=== PATIENT | female | born 1960 | race Caucasian/White ===

== ENCOUNTER 2017-07-19 00:26 | Inpatient (IN) | payer BC ==
[~2017-07-19] VITALS: Ht 162.6 cm; Wt 123.4 kg
[2017-07-19] MEDS ORDERED: IPRATROPIUM BROM3 M1 (00:43)
[2017-07-19] MEDS ORDERED: PROAIR HFA0.09 MG/AC INH (00:43)
[2017-07-19] MEDS ORDERED: COMBIRESP INH (00:44)
[2017-07-19] MEDS ORDERED: ASPIRIN 81M81 MG/TA2 PO (00:45)
[2017-07-19] MEDS ORDERED: LIPITOR 40MG TA40 MG PO (00:45)
[2017-07-19] MEDS ORDERED: KLONOPIN 1MG1 MG PO (00:46)
[2017-07-19] MEDS ORDERED: PLAVIX 75MG TAB75 MG PO (00:46)
[2017-07-19] MEDS ORDERED: FLONASEALLERGY NAS (00:47)
[2017-07-19] MEDS ORDERED: LASIX 40MG TABL40 MG PO ×2 (00:49→00:50)
[2017-07-19] MEDS ORDERED: NEURONTIN600 MG/TAB PO (00:51)
[2017-07-19] MEDS ORDERED: GLUCOSAMINE/CHO1 CA4 PO (00:53)
[2017-07-19] MEDS ORDERED: MUCINEX 60600 MG/TA1 PO (00:54)
[2017-07-19] MEDS ORDERED: NOVOLOG 100U100 U/M1 SQ ×2 (00:55→00:56)
[2017-07-19] MEDS ORDERED: TRESIBA FL200 UNIT/1 SQ (00:56)
[2017-07-19] MEDS ORDERED: COZAAR 25MG25 MG/TAB PO (00:57)
[2017-07-19] MEDS ORDERED: SYNTHROID0.2 MG/TAB (00:57)
[2017-07-19] MEDS ORDERED: ZAROXOLYN 2.52.5 MG (00:59)
[2017-07-19] MEDS ORDERED: TOPROL XL 25MG25 MG PO (01:08)
[2017-07-19] MEDS ORDERED: OMEGA-3 FISH1000 MG PO (01:09)
[2017-07-19] MEDS ORDERED: PROTONIX40 MG/Pack PO (01:09)
[2017-07-19] MEDS ORDERED: K-DUR 10 MEQ T10 MEQ PO (01:12)
[2017-07-19 01:25] LABS: INFLUENZA A NEGATIVE; INFLUENZA B NEGATIVE
[2017-07-19] MEDS ORDERED: K-DUR 10 MEQ T10 MEQ (01:25)
[2017-07-19] MEDS ORDERED: AMBIEN 10MG10 MG PO (01:26)
[2017-07-19] MEDS ORDERED: EFFEXOR-XR150 MG PO (01:26)
[2017-07-19 01:31] LABS: BASO % 0.5 % (0.0-2.0); EOS # 0.2 (0.0-0.7); EOS % 3.8 % (0-4.0); GRAN # 3.9 (1.4-6.5); GRAN % 66.9 % (42.2-75.2); LYMPH # 1.1 (1.2-3.4); MEAN CELL VOLUME 84 fl (80.0-100.0); MEAN CORPUSCULAR HGB CONC 30 g/dl (33.0-37.0); MEAN PLATELET VOLUME 9.6 fl (7.4-10.4); MONO # 0.6 (0.1-0.6); MONO % 10.6 % (1.7-9.3); PLATELET COUNT 228 K/mm3 (130-400); RED BLOOD COUNT 4.16 M/mm3 (4.10-5.30); REDCELL DISTRIBUTION WIDTH-CV 16.9 % (11.5-14.5)
[2017-07-19 01:33] LABS: HEMATOCRIT 34.9 % (37.0-47.0); HEMOGLOBIN 10.6 g/dl (12.5-16.0); MEAN CORPUSCULAR HEMOGLOBIN 25 pg (27.0-31.0)
[2017-07-19 01:40] LABS: ALBUMIN 3.8 gm/dL (3.5-5.0); BILIRUBIN,TOTAL 0.3 mg/dL (0.0-1.0); CALCIUM 9.1 mg/dL (8.4-10.2); CREATININE, serum 0.76 mg/dL (0.52-1.25); POTASSIUM 4.1 mmol/L (3.4-5.0); TOTAL PROTEIN 6.9 gm/dL (6.4-8.2)
[2017-07-19 04:49] VITALS: BP 133/60; PULSE 88; TEMP 98.1
[2017-07-19 04:51] VITALS: BP 133/60; PULSE 87; TEMP 98.3
[2017-07-19 05:04] LABS: BUDDING YEAST Present /hpf; PH 5 (5-8); SQUAMOUS EPITHELIAL 0-2 /hpf; URINE APPEARANCE Clear; URINE BACTERIA None Seen /hpf; URINE BILIRUBIN Negative (NEGATIVE); URINE BLOOD 1+ (NEGATIVE); URINE COLOR Straw; URINE GLUCOSE 3+ (NEGATIVE); URINE KETONE Negative (NEGATIVE); URINE LEUKOCYTE ESTERASE Trace (NEGATIVE); URINE NITRATE Negative (NEGATIVE); URINE PROTEIN(semi-quant) Negative (NEGATIVE); URINE UROBILINOGEN Negative (NEGATIVE)
[2017-07-19 05:14] LABS: COLLECTION METHOD CLEAN CATCH
[2017-07-19 05:37] LABS: MEAN CELL VOLUME 84 fl (80.0-100.0); MEAN CORPUSCULAR HGB CONC 31 g/dl (33.0-37.0); MEAN PLATELET VOLUME 9.8 fl (7.4-10.4); PLATELET COUNT 246 K/mm3 (130-400); RED BLOOD COUNT 4.32 M/mm3 (4.10-5.30)
[2017-07-19 05:39] LABS: HEMATOCRIT 36.4 % (37.0-47.0); HEMOGLOBIN 11.1 g/dl (12.5-16.0); MEAN CORPUSCULAR HEMOGLOBIN 26 pg (27.0-31.0)
[2017-07-19 05:42] LABS: PROTHROMBIN TIME 12.1 SECONDS (9.7-12.8)
[2017-07-19 05:49] LABS: ALBUMIN 4.2 gm/dL (3.5-5.0); BILIRUBIN,TOTAL 0.3 mg/dL (0.0-1.0); CHOLESTEROL RISK RATIO 3.3; CREATININE, serum 0.79 mg/dL (0.52-1.25); MAGNESIUM 1.4 mg/dL (1.6-2.3); TOTAL PROTEIN 7.7 gm/dL (6.4-8.2)
[2017-07-19 05:59] LABS: BAND 4 % (0-10); LYMPHOCYTE 16 % (20.0-51.0); NEUTROPHILS 76 % (42.0-75.2); TROPONIN-I 0.024 ng/mL (0.000-0.034)
[2017-07-19 06:00] LABS: ANISOCYTOSIS 2+; HYPOCHROMIA 2+; POLYCHROMASIA 1+
[2017-07-19 06:18] LABS: THYROID STIMULATING HORMONE 15.5 uIU/mL (0.465-4.680)
[2017-07-19 07:21] VITALS: BP 117/50; PULSE 86; TEMP 97.7
[2017-07-19 12:19] VITALS: BP 134/53; PULSE 84; TEMP 97.6
[2017-07-19 15:43] VITALS: BP 148/63; PULSE 94
[2017-07-19 18:08] LABS: CALCIUM 9.2 mg/dL (8.4-10.2); CREATININE, serum 0.83 mg/dL (0.52-1.25); POTASSIUM 4.7 mmol/L (3.4-5.0)
[2017-07-19 19:07] VITALS: BP 125/60; PULSE 73; TEMP 98.2
[2017-07-20] VITALS (7 sets, daily range): BP systolic 116–145; BP diastolic 43–78; PULSE 55–84; TEMP 97.6–98.6
[2017-07-20 07:27] LABS: BASO % 0.5 % (0.0-2.0); EOS % 0.2 % (0-4.0); GRAN # 4.9 (1.4-6.5); GRAN % 83.2 % (42.2-75.2); HEMATOCRIT 37.3 % (37.0-47.0); LYMPH # 0.6 (1.2-3.4); LYMPH % 10.7 % (20.0-51.0); MEAN CELL VOLUME 86 fl (80.0-100.0); MEAN CORPUSCULAR HEMOGLOBIN 26 pg (27.0-31.0); MEAN CORPUSCULAR HGB CONC 30 g/dl (33.0-37.0); MEAN PLATELET VOLUME 10.4 fl (7.4-10.4); MONO # 0.3 (0.1-0.6); MONO % 4.7 % (1.7-9.3); PLATELET COUNT 280 K/mm3 (130-400); RED BLOOD COUNT 4.36 M/mm3 (4.10-5.30); REDCELL DISTRIBUTION WIDTH-CV 17.2 % (11.5-14.5)
[2017-07-20 07:31] LABS: HEMOGLOBIN 11.2 g/dl (12.5-16.0)
[2017-07-21] VITALS (7 sets, daily range): BP systolic 125–175; BP diastolic 47–62; PULSE 78–108; TEMP 98–98.6
[2017-07-21 06:58] LABS: CALCIUM 9.2 mg/dL (8.4-10.2); CREATININE, serum 0.89 mg/dL (0.52-1.25); POTASSIUM 3.6 mmol/L (3.4-5.0)
[2017-07-22 03:40] VITALS: BP 117/43; PULSE 79; TEMP 98.5
[2017-07-22 07:27] VITALS: BP 137/60; PULSE 83; TEMP 97.8
[2017-07-22 07:58] LABS: BASO # 0.1 (0.0-0.2); BASO % 0.5 % (0.0-2.0); EOS # 0.3 (0.0-0.7); EOS % 2.6 % (0-4.0); GRAN # 9.3 (1.4-6.5); GRAN % 76.6 % (42.2-75.2); LYMPH # 1.6 (1.2-3.4); MEAN CELL VOLUME 86 fl (80.0-100.0); MEAN CORPUSCULAR HGB CONC 30 g/dl (33.0-37.0); MEAN PLATELET VOLUME 9.8 fl (7.4-10.4); MONO # 0.9 (0.1-0.6); MONO % 7.1 % (1.7-9.3); PLATELET COUNT 242 K/mm3 (130-400); RED BLOOD COUNT 4.08 M/mm3 (4.10-5.30); REDCELL DISTRIBUTION WIDTH-CV 17.4 % (11.5-14.5)
[2017-07-22 08:05] LABS: CALCIUM 8.8 mg/dL (8.4-10.2); CREATININE, serum 0.9 mg/dL (0.52-1.25)
[2017-07-22 08:13] LABS: HEMATOCRIT 34.9 % (37.0-47.0); HEMOGLOBIN 10.5 g/dl (12.5-16.0); MEAN CORPUSCULAR HEMOGLOBIN 26 pg (27.0-31.0)
[2017-07-22 11:31] VITALS: BP 120/95; PULSE 89; TEMP 98.4
[2017-07-22 16:09] VITALS: BP 106/50; PULSE 68; TEMP 97.4
[2017-07-22 20:08] VITALS: BP 153/74; PULSE 81; TEMP 98.3
[2017-07-22 23:48] VITALS: BP 153/59; PULSE 84; TEMP 98.2
[2017-07-23 04:10] VITALS: BP 159/51; PULSE 94; TEMP 98.2
[2017-07-23 07:31] LABS: CALCIUM 8.9 mg/dL (8.4-10.2); CREATININE, serum 0.84 mg/dL (0.52-1.25); POTASSIUM 3.9 mmol/L (3.4-5.0)
[2017-07-23 07:35] VITALS: BP 154/52; PULSE 89; TEMP 98
[2017-07-23 10:53] VITALS: BP 118/50; PULSE 74; TEMP 98.9
[2017-07-23 15:49] VITALS: BP 147/63; PULSE 80; TEMP 98.6
[2017-07-23 21:46] VITALS: BP 145/59; PULSE 84; TEMP 98.2
[2017-07-24 00:38] VITALS: BP 156/53; PULSE 84; TEMP 99.6
[2017-07-24 04:49] VITALS: BP 141/54; PULSE 79; TEMP 99.1
[2017-07-24 05:56] LABS: BASO % 0.4 % (0.0-2.0); EOS # 0.6 (0.0-0.7); EOS % 6.5 % (0-4.0); GRAN # 5.3 (1.4-6.5); GRAN % 63.2 % (42.2-75.2); LYMPH # 1.9 (1.2-3.4); MEAN CELL VOLUME 85 fl (80.0-100.0); MEAN CORPUSCULAR HGB CONC 30 g/dl (33.0-37.0); MEAN PLATELET VOLUME 9.4 fl (7.4-10.4); MONO # 0.6 (0.1-0.6); MONO % 7.5 % (1.7-9.3); PLATELET COUNT 248 K/mm3 (130-400); RED BLOOD COUNT 3.99 M/mm3 (4.10-5.30); REDCELL DISTRIBUTION WIDTH-CV 17.2 % (11.5-14.5)
[2017-07-24 06:03] LABS: HEMATOCRIT 33.7 % (37.0-47.0); HEMOGLOBIN 10.1 g/dl (12.5-16.0); MEAN CORPUSCULAR HEMOGLOBIN 25 pg (27.0-31.0)
[2017-07-24 06:07] LABS: CALCIUM 8.5 mg/dL (8.4-10.2); CREATININE, serum 0.73 mg/dL (0.52-1.25); POTASSIUM 4.1 mmol/L (3.4-5.0)
[2017-07-24 07:15] VITALS: BP 136/49; PULSE 77; TEMP 97.8
[2017-07-24 10:58] VITALS: BP 132/53; PULSE 82; TEMP 98.4
[2017-07-24] MEDS ORDERED: NYSTATIN OR100 MU/ML PO (14:42)
== END 2017-07-24 18:27 | disposition home or self-care (01) | DRG 191 ==
LOC: COL.ER 00:26 → MEDICAL 02:27
PROVIDERS: Emergency Medicine; Family Medicine; Internal Medicine; Physician Assistant
DX: J44.1 Chronic obstructive pulmonary disease with (acute) exacerbation (principal); Z68.42 Body mass index [BMI] 45.0-49.9, adult; E66.01 Morbid (severe) obesity due to excess calories; E03.9 Hypothyroidism, unspecified; J06.9 Acute upper respiratory infection, unspecified; I11.0 Hypertensive heart disease with heart failure; I50.9 Heart failure, unspecified; E11.9 Type 2 diabetes mellitus without complications; I73.9 Peripheral vascular disease, unspecified; F41.9 Anxiety disorder, unspecified; R51 Headache; Z95.1 Presence of aortocoronary bypass graft; Z95.5 Presence of coronary angioplasty implant and graft; Z87.891 Personal history of nicotine dependence; Z79.4 Long term (current) use of insulin
CPT/HCPCS: 99223-AI; 99232-AI; 99233-AI; 99239; G0378; J0456; J0696; J1650; J1815; J1940; J2920; J2930; J7030; J7050

== ENCOUNTER → 2018-01-07 | Outpatient (CLI) | payer BC ==
[~2018-01-07] MED LIST: AMBIEN 10MG10 MG PO; ASPIRIN 81M81 MG/TA2 PO; COMBIRESP INH; COZAAR 25MG25 MG/TAB PO; EFFEXOR-XR150 MG PO; FLONASEALLERGY NAS; GLUCOSAMINE/CHO1 CA4 PO; IPRATROPIUM BROM3 M1; K-DUR 10 MEQ T10 MEQ; K-DUR 10 MEQ T10 MEQ PO; KLONOPIN 1MG1 MG PO; LASIX 40MG TABL40 MG PO; LIPITOR 40MG TA40 MG PO; MUCINEX 60600 MG/TA1 PO; NEURONTIN600 MG/TAB PO; NOVOLOG 100U100 U/M1 SQ; NYSTATIN OR100 MU/ML PO; OMEGA-3 FISH1000 MG PO; PLAVIX 75MG TAB75 MG PO; PROAIR HFA0.09 MG/AC INH; PROTONIX40 MG/Pack PO; SYNTHROID0.2 MG/TAB; TOPROL XL 25MG25 MG PO; TRESIBA FL200 UNIT/1 SQ; ZAROXOLYN 2.52.5 MG
[2018-01-07 14:05] LABS: BASO # 0.1 (0.0-0.2); BASO % 0.9 % (0.0-2.0); EOS # 0.3 (0.0-0.7); EOS % 4.9 % (0-4.0); GRAN # 3.4 (1.4-6.5); GRAN % 59.6 % (42.2-75.2); HEMATOCRIT 40.7 % (37.0-47.0); LYMPH # 1.5 (1.2-3.4); LYMPH % 26.9 % (20.0-51.0); MEAN CELL VOLUME 90 fl (80.0-100.0); MEAN CORPUSCULAR HEMOGLOBIN 29 pg (27.0-31.0); MEAN CORPUSCULAR HGB CONC 32 g/dl (33.0-37.0); MEAN PLATELET VOLUME 9.9 fl (7.4-10.4); MONO # 0.4 (0.1-0.6); PLATELET COUNT 264 K/mm3 (130-400); RED BLOOD COUNT 4.52 M/mm3 (4.10-5.30); REDCELL DISTRIBUTION WIDTH-CV 15.4 % (11.5-14.5)
[2018-01-07 14:49] LABS: TSH w REFLEX 11.7 uIU/mL (0.465-4.680)
== END ==
LOC: COL.LAB 12:09
PROVIDERS: Family Medicine
DX: L02.12 Furuncle of neck (principal); E03.9 Hypothyroidism, unspecified; E11.9 Type 2 diabetes mellitus without complications; L03.019 Cellulitis of unspecified finger

== ENCOUNTER → 2018-02-26 | Outpatient (CLI) | payer BC | LOC: COL.LAB 15:57 | DX: E03.9 Hypothyroidism, unspecified (principal) ==

== ENCOUNTER → 2018-06-03 | Outpatient (CLI) | payer BC ==
[2018-06-03 12:08] LABS: CALCIUM 9.6 mg/dL (8.4-10.2); CREATININE, serum 0.67 mg/dL (0.52-1.25); MAGNESIUM 1.6 mg/dL (1.6-2.3); POTASSIUM 4.7 mmol/L (3.4-5.0)
== END ==
LOC: COL.LAB 11:31
PROVIDERS: Internal Medicine Cardiovascular Disease
DX: I10 Essential (primary) hypertension (principal)

== ENCOUNTER → 2018-07-31 | Outpatient (CLI) | payer BC ==
[2018-07-31 16:19] LABS: HEMATOCRIT 44.1 % (37.0-47.0); HEMOGLOBIN 14.9 g/dl (12.5-16.0); MEAN CELL VOLUME 87 fl (80.0-100.0); MEAN CORPUSCULAR HEMOGLOBIN 29 pg (27.0-31.0); MEAN CORPUSCULAR HGB CONC 34 g/dl (33.0-37.0); MEAN PLATELET VOLUME 10.1 fl (7.4-10.4); PLATELET COUNT 233 K/mm3 (130-400); RED BLOOD COUNT 5.07 M/mm3 (4.10-5.30); REDCELL DISTRIBUTION WIDTH-CV 13.9 % (11.5-14.5)
[2018-07-31 16:31] LABS: CALCIUM 9.9 mg/dL (8.4-10.2); CREATININE, serum 0.76 mg/dL (0.52-1.25); POTASSIUM 5.4 mmol/L (3.4-5.0)
== END ==
LOC: COL.LAB 15:37
PROVIDERS: Internal Medicine Cardiovascular Disease
DX: I73.9 Peripheral vascular disease, unspecified (principal)

== ENCOUNTER → 2018-08-07 | Outpatient (CLI) | payer BC ==
[2018-08-07 16:56] LABS: HEMATOCRIT 40.5 % (37.0-47.0); HEMOGLOBIN 13.6 g/dl (12.5-16.0); MEAN CELL VOLUME 88 fl (80.0-100.0); MEAN CORPUSCULAR HEMOGLOBIN 30 pg (27.0-31.0); MEAN CORPUSCULAR HGB CONC 34 g/dl (33.0-37.0); MEAN PLATELET VOLUME 10.4 fl (7.4-10.4); PLATELET COUNT 186 K/mm3 (130-400); RED BLOOD COUNT 4.58 M/mm3 (4.10-5.30); REDCELL DISTRIBUTION WIDTH-CV 13.7 % (11.5-14.5)
[2018-08-07 17:12] LABS: CALCIUM 9.5 mg/dL (8.4-10.2); CREATININE, serum 0.72 mg/dL (0.52-1.25); POTASSIUM 4.8 mmol/L (3.4-5.0)
== END ==
LOC: COL.LAB 16:34
PROVIDERS: Internal Medicine Cardiovascular Disease
DX: I73.9 Peripheral vascular disease, unspecified (principal)

== ENCOUNTER → 2018-10-29 | Outpatient (CLI) | payer BC | LOC: COL.RAD 08:18 | DX: I99.8 Other disorder of circulatory system (principal); I70.203 Unspecified atherosclerosis of native arteries of extremities, bilateral legs; I74.5 Embolism and thrombosis of iliac artery; Z95.820 Peripheral vascular angioplasty status with implants and grafts; I74.3 Embolism and thrombosis of arteries of the lower extremities | CPT/HCPCS: Q9967 ==

== ENCOUNTER 2019-08-21 17:06 | Inpatient (IN) | payer BC ==
[2019-08-21] VITALS (53 sets, daily range): BP systolic 100–109; BP diastolic 62–73; PULSE 72–82; TEMP 97.7; O2SAT 95–100
[~2019-08-21] VITALS: Ht 162.6 cm; Wt 105.2 kg
[~2019-08-21 17:06] MED LIST changes: -SYNTHROID0.2 MG/TAB; +SYNTHROID0.2 MG/TAB PO
[2019-08-21 17:37] LABS: BASO # 0.1 (0.0-0.2); BASO % 0.6 % (0.0-2.0); EOS # 0.1 (0.0-0.7); EOS % 1.1 % (0-4.0); GRAN # 8.7 (1.4-6.5); GRAN % 75.9 % (42.2-75.2); HEMATOCRIT 47.2 % (37.0-47.0); HEMOGLOBIN 15.2 g/dl (12.5-16.0); INR 0.9 (0.8-3.0); LYMPH # 1.7 (1.2-3.4); LYMPH % 14.4 % (20.0-51.0); MEAN CELL VOLUME 89 fl (80.0-100.0); MEAN CORPUSCULAR HEMOGLOBIN 29 pg (27.0-31.0); MEAN CORPUSCULAR HGB CONC 32 g/dl (33.0-37.0); MONO # 0.9 (0.1-0.6); MONO % 7.5 % (1.7-9.3); PLATELET COUNT 280 K/mm3 (130-400); PROTHROMBIN TIME 10.5 SECONDS (9.7-12.8); RED BLOOD COUNT 5.32 M/mm3 (4.10-5.30); REDCELL DISTRIBUTION WIDTH-CV 15.2 % (11.5-14.5)
[2019-08-21 17:39] LABS: PARTIAL THROMBOPLASTIN TIME 43.3 SECONDS (26.0-37.0)
[2019-08-21 17:51] LABS: ALBUMIN 4.5 gm/dL (3.5-5.0); BILIRUBIN,TOTAL 0.7 mg/dL (0.0-1.0); CALCIUM 9.7 mg/dL (8.4-10.2); CREATININE, serum 0.97 (0.52-1.25); POTASSIUM 5.2 mmol/L (3.4-5.0); TOTAL PROTEIN 8.7 gm/dL (6.4-8.2)
[2019-08-21 18:07] LABS: TROPONIN-I 3.59 ng/mL (0.000-0.035)
[2019-08-21 20:36] LABS: ARTERIAL BLD GAS O2 SATURATION 99.1 % (92-100); ARTERIAL BLD GAS TCO2 CT 18.6; ARTERIAL BLOOD GAS BASE EXCESS -5.9 (-2-2); ARTERIAL BLOOD GAS HCO3 17.7 meq/L (22-26); ARTERIAL BLOOD GAS PCO2 29.8 mmHg (35-45); ARTERIAL BLOOD GAS pH 7.39 (7.35-7.45)
[2019-08-21 20:37] LABS: ARTERIAL BLOOD GAS PO2 174.8 mmHg (80-100)
[2019-08-21 21:30] LABS: MAGNESIUM 1.9 mg/dL (1.6-2.3)
[2019-08-21] MEDS ORDERED: INSHUMULINR (21:43)
[2019-08-21 22:02] LABS: TSH w REFLEX 19.9 uIU/mL (0.465-4.680)
[2019-08-21 22:05] LABS: TROPONIN-I 3 HR POST INITIAL 22.1 ng/mL (0.000-0.034)
[2019-08-21] MEDS ORDERED: COZAAR 50MG50 MG/TAB PO (22:09)
[2019-08-21] MEDS ORDERED: SYNTHROID0.075 MG/T PO (22:12)
[2019-08-21] MEDS ORDERED: ALDACTONE 25MG25 M1 PO (22:15)
[2019-08-21] MEDS ORDERED: TOPROL XL 50MG50 MG PO (22:16)
[2019-08-21] MEDS ORDERED: NOVOLIN N100 U/ML SQ (22:21)
[2019-08-21] MEDS ORDERED: AMITRIPTYLINE H25 M1 PO (22:32)
[2019-08-21] MEDS ORDERED: DESYREL 50MG50 MG PO (22:33)
[2019-08-21 22:40] LABS: CALCIUM 9.1 mg/dL (8.4-10.2); CREATININE, serum 0.8 (0.52-1.25); POTASSIUM 4.9 mmol/L (3.4-5.0)
[2019-08-21 22:53] LABS: CHOLESTEROL RISK RATIO 5.6; PHOSPHOROUS 3.6 mg/dL (2.5-4.5)
[2019-08-21 22:56] LABS: COLLECTION METHOD CLEAN CATCH
[2019-08-21 23:11] LABS: MUCOUS Present /lpf; PH 5 (5-8); SQUAMOUS EPITHELIAL 0-2 /hpf; URINE APPEARANCE Cloudy; URINE BACTERIA Rare /hpf; URINE BILIRUBIN Negative (NEGATIVE); URINE BLOOD 2+ (NEGATIVE); URINE COLOR Yellow; URINE GLUCOSE 3+ (NEGATIVE); URINE KETONE 2+ (NEGATIVE); URINE LEUKOCYTE ESTERASE 1+ (NEGATIVE); URINE NITRATE Negative (NEGATIVE); URINE PROTEIN(semi-quant) Negative (NEGATIVE); URINE UROBILINOGEN Negative (NEGATIVE)
[2019-08-22] VITALS (270 sets, daily range): BP systolic 84–109; BP diastolic 32–73; PULSE 60–75; TEMP 97.4–98.1; O2SAT 74–100
[2019-08-22 00:45] LABS: CALCIUM 8.7 mg/dL (8.4-10.2); CREATININE, serum 0.77 (0.52-1.25); POTASSIUM 4.1 mmol/L (3.4-5.0)
[2019-08-22] MEDS ORDERED: GLUCOPHAGE500 MG/TAB PO (02:14)
[2019-08-22 02:54] LABS: CALCIUM 8.6 mg/dL (8.4-10.2); CREATININE, serum 0.88 (0.52-1.25); POTASSIUM 3.5 mmol/L (3.4-5.0)
--- NOTE | 2019-08-22 03:31 | NUR ---
CALLED DR PARKER ABOUT SOFT BLOOD PRESSURES AND BOLUSES OF NS, RECIEVED ORDERS,TO INCREASE FLUIDS AND START DOPAMINE DRIP IF B/Ps REMAINS BELOW 100 SYSTOLIC, ADVISED DR ABOUT TROPONI LEVELS..
[2019-08-22 05:02] LABS: BASO % 0.4 % (0.0-2.0); EOS # 0.3 (0.0-0.7); EOS % 3.2 % (0-4.0); GRAN % 61.1 % (42.2-75.2); HEMATOCRIT 37.9 % (37.0-47.0); LYMPH # 2.5 (1.2-3.4); LYMPH % 25.3 % (20.0-51.0); MEAN CELL VOLUME 88 fl (80.0-100.0); MEAN CORPUSCULAR HEMOGLOBIN 28 pg (27.0-31.0); MEAN CORPUSCULAR HGB CONC 32 g/dl (33.0-37.0); MEAN PLATELET VOLUME 9.7 fl (7.4-10.4); MONO # 0.9 (0.1-0.6); MONO % 9.2 % (1.7-9.3); PLATELET COUNT 233 K/mm3 (130-400); RED BLOOD COUNT 4.29 M/mm3 (4.10-5.30); REDCELL DISTRIBUTION WIDTH-CV 15.3 % (11.5-14.5)
--- NOTE | 2019-08-22 05:05 | NUR ---
CALLED DR PARKER ABOUT AMARODARONE DRIP CHANGE IN ORDERS, AGAIN QUESTIONED ABOUT TROPONIN CONTINUES TO RISE, AND NO URINE OUT PUT, DR ADVISED THAT HE WOULD CARE FOR AMARODARONE DRIP IN AM LEAVE OFF FOR NOW, AND YES HE EXPECTS THE TROPONIN TO RISE AND NOT TO ORDER ANOTHER ONE FOR 24 HOURS, HOPEFULLY THE URINE OUT PUT WOULD INCREASE BECAUSE OF DOPAMINE DRIP.
[2019-08-22 05:09] LABS: HEMOGLOBIN 12.2 g/dl (12.5-16.0)
[2019-08-22 05:10] LABS: ALBUMIN 3.5 gm/dL (3.5-5.0); BILIRUBIN,TOTAL 0.3 mg/dL (0.0-1.0); CALCIUM 8.4 mg/dL (8.4-10.2); CREATININE, serum 0.95 (0.52-1.25); POTASSIUM 3.6 mmol/L (3.4-5.0)
[2019-08-22 05:23] LABS: TROPONIN-I 35.7 ng/mL (0.000-0.035)
--- NOTE | 2019-08-22 07:00 | NUR ---
Bedside report received from MARLI Nobles.
--- NOTE | 2019-08-22 08:00 | NUR ---
DR. HERNÁNDEZ HERE. HE IS UPDATED ON PATIENT SITUATION. THERE IS NO OFFICIAL CONSULT FOR HER, BUT HE IS NOTIFIED SINCE HE IS LOIN PULLER AND PATIENT IS ICU STATUS.
[2019-08-22 08:24] LABS: CALCIUM 7.7 mg/dL (8.4-10.2); CREATININE, serum 0.95 (0.52-1.25); POTASSIUM 3.3 mmol/L (3.4-5.0)
--- NOTE | 2019-08-22 09:20 | NUR ---
DR. OROPEZA HERE TO SEE PATIENT. DR. KNUTSON ALSO HERE TO SEE PATIENT. DR. KNUTSON RECOMMENDS TRANSFER TO [facility] D/T CARDIOGENIC SHOCK. ELEVATED TROPONIN. WAREHOUSE INCENTIVE SELECTOR NOTIFIED.
--- NOTE | 2019-08-22 10:35 | NUR ---
PATIENT WILL GO TO PENDING SALE TO [facility] ROOM 0286. [facility]. FAMILY AT BEDSIDE AND UPDATED BY DR. OROPEZA.
--- NOTE | 2019-08-22 11:30 | NUR ---
REPORT CALLED TO VANITA MENSAH RN. PATIENT HAS LEFT WITH [facility] TEAM.
== END 2019-08-22 11:30 | disposition short-term general hospital (02) | DRG 280 ==
LOC: COL.ER 17:06 → ICU 20:41
PROVIDERS: Emergency Medicine; Nurse Practitioner Family; ADMIT Student in an Organized Health Care Education/Training Program
PROC: 5A2204Z Restoration of Cardiac Rhythm, Single (ICD-10-PCS; principal; 2019-08-21)
PROC: B24BZZ4 Ultrasonography of Heart with Aorta, Transesophageal (ICD-10-PCS; 2019-08-21)
DX: I21.4 Non-ST elevation (NSTEMI) myocardial infarction (principal); E11.10 Type 2 diabetes mellitus with ketoacidosis without coma; R57.0 Cardiogenic shock; E87.0 Hyperosmolality and hypernatremia; I48.92 Unspecified atrial flutter; L97.429 Non-pressure chronic ulcer of left heel and midfoot with unspecified severity; I25.10 Atherosclerotic heart disease of native coronary artery without angina pectoris; I44.7 Left bundle-branch block, unspecified; I70.8 Atherosclerosis of other arteries; E86.0 Dehydration; I48.91 Unspecified atrial fibrillation; F41.9 Anxiety disorder, unspecified; F32.9 Major depressive disorder, single episode, unspecified; I25.5 Ischemic cardiomyopathy; E78.5 Hyperlipidemia, unspecified; E66.9 Obesity, unspecified; E11.65 Type 2 diabetes mellitus with hyperglycemia; E11.51 Type 2 diabetes mellitus with diabetic peripheral angiopathy without gangrene; E87.5 Hyperkalemia; G47.00 Insomnia, unspecified; E11.40 Type 2 diabetes mellitus with diabetic neuropathy, unspecified; I08.1 Rheumatic disorders of both mitral and tricuspid valves; J44.9 Chronic obstructive pulmonary disease, unspecified; Z95.5 Presence of coronary angioplasty implant and graft; Z90.710 Acquired absence of both cervix and uterus; Z88.0 Allergy status to penicillin; Z88.1 Allergy status to other antibiotic agents; Z88.8 Allergy status to other drugs, medicaments and biological substances
CPT/HCPCS: 99223-AI; A4216; J0282; J0696; J1170; J1265; J1644; J1815; J2405; J2704; J3480; J7030; J7060